=== PATIENT | female | born 1940 | race Caucasian/White ===

== ENCOUNTER 2017-04-27 10:02 | Day surgery (SDC) | payer OTHER, MEDICAID ==
[2017-04-27] MEDS ORDERED: NS 500 ML IV 500 ML IV ONE (10:06)
[2017-04-27] MEDS ORDERED: TETRACAINE 0.5% OPHTH 1 DOSE AFFEYE ONE ×4 (10:15→13:13)
[2017-04-27] MEDS ORDERED: VIGAMOX 0.5% OPHTH 1 DOSE AFFEYE ONE ×6 (10:16→13:23)
[2017-04-27] MEDS ORDERED: PROLENSA OPHTH 1 DOSE AFFEYE ONE (10:27)
[2017-04-27] MEDS ORDERED: ALPHAGAN-P OPHTH 1 DOSE AFFEYE ONE (10:28)
[2017-04-27] MEDS ORDERED: AK-DILATE 2.5% OPHTH 1 DOSE OP ONE ×5 (10:29→10:33)
[2017-04-27] MEDS ORDERED: MYDRIACIL OPHTH 1 DOSE AFFEYE ONE ×5 (10:29→10:33)
[2017-04-27] MEDS ORDERED: CYCLOGYL 1% OPHTH 1 DOSE OP ONE ×5 (10:29→10:33)
[2017-04-27] MEDS ORDERED: DUOVISC IO ONE ×2 (13:02→13:13)
[2017-04-27] MEDS ORDERED: XYLOCAINE-MPF 1% IJ ONE ×2 (13:02→13:13)
[2017-04-27] MEDS ORDERED: ADRENALINE CHL INJ IJ ONE ×2 (13:02→13:13)
[2017-04-27] MEDS ORDERED: BSS OPHTH (PLAIN) 500 ML with VANCOMYCIN HCL 500 MG VIAL 25 MG, ADRENALINE CHL INJ 1 MG IR ONE ×6 (13:03)
[2017-04-27 13:45] VITALS: BP 152/68
[2017-04-27] MEDS ORDERED: VERSED ONE (15:57)
== END 2017-04-27 13:45 | disposition home or self-care (01) ==
LOC: SURG1 10:02
PROVIDERS: ATTEND Ophthalmology
PROC: 08RJ3JZ Replacement of Right Lens with Synthetic Substitute, Percutaneous Approach (ICD-10-PCS; principal; 2017-04-27 18:30)
PROC: 08DJ3ZZ Extraction of Right Lens, Percutaneous Approach (ICD-10-PCS; principal; 2017-04-27 18:30)
DX: H25.11 Age-related nuclear cataract, right eye (principal); H25.011 Cortical age-related cataract, right eye
CPT/HCPCS: 99100; A4217; J0170; J2250; J3370

== ENCOUNTER 2017-06-01 09:10 | Day surgery (SDC) | payer OTHER, MEDICAID ==
[2017-06-01] MEDS ORDERED: NS 500 ML IV 500 ML IV ONE (09:33)
[2017-06-01] MEDS ORDERED: TETRACAINE 0.5% OPHTH 1 DOSE AFFEYE ONE ×2 (09:40→12:45)
[2017-06-01] MEDS ORDERED: VIGAMOX 0.5% OPHTH 1 DOSE AFFEYE ONE ×6 (09:42→13:13)
[2017-06-01] MEDS ORDERED: DIPRIVAN VIAL ONE (09:43)
[2017-06-01] MEDS ORDERED: VERSED ONE (09:43)
[2017-06-01] MEDS ORDERED: PROLENSA OPHTH 1 DOSE AFFEYE ONE (09:52)
[2017-06-01] MEDS ORDERED: ALPHAGAN-P OPHTH 1 DOSE AFFEYE ONE (09:53)
[2017-06-01] MEDS ORDERED: CYCLOGYL 1% OPHTH 1 DOSE OP ONE ×2 (09:54→09:55)
[2017-06-01] MEDS ORDERED: MYDRIACIL OPHTH 1 DOSE AFFEYE ONE ×3 (09:54→09:56)
[2017-06-01] MEDS ORDERED: AK-DILATE 2.5% OPHTH 1 DOSE OP ONE ×3 (09:54→09:56)
[2017-06-01] MEDS ORDERED: BETADINE OPHTH SOLN 5% EACHEYE ONE (12:45)
[2017-06-01] MEDS ORDERED: DUOVISC IO ONE ×2 (12:50→13:03)
[2017-06-01] MEDS ORDERED: ADRENALINE CHL INJ IJ ONE ×2 (12:50→13:03)
[2017-06-01] MEDS ORDERED: XYLOCAINE 1 % (PLAIN) IJ ONE ×2 (12:50→13:03)
[2017-06-01] MEDS ORDERED: BSS OPHTH (PLAIN) 500 ML with VANCOMYCIN HCL 500 MG VIAL 25 MG, ADRENALINE CHL INJ 1 MG IR ONE ×6 (12:57)
[2017-06-01] MEDS ORDERED: TobraDEX OPHTH SUSP 1 DOSE AFFEYE ONE (13:13)
[2017-06-01 13:23] VITALS: BP 145/67
== END 2017-06-01 13:32 | disposition home or self-care (01) ==
LOC: SURG1 09:10
PROVIDERS: ATTEND Ophthalmology
PROC: 08RK3JZ Replacement of Left Lens with Synthetic Substitute, Percutaneous Approach (ICD-10-PCS; principal; 2017-06-01 16:30)
PROC: 08DK3ZZ Extraction of Left Lens, Percutaneous Approach (ICD-10-PCS; principal; 2017-06-01 16:30)
DX: H25.12 Age-related nuclear cataract, left eye (principal); H25.012 Cortical age-related cataract, left eye
CPT/HCPCS: 99100; A4217; J0170; J2001; J2250; J3370; J3490

== ENCOUNTER → 2017-07-23 | Outpatient (CLI) | payer OTHER, MEDICAID ==
[2017-07-23 11:53] LABS: BASOPHILS # (AUTO) 0.1 X10^3/uL (0.0-0.1); BASOPHILS % (AUTO) 1.2 % (0.2-1.0); EOSINOPHILS # (AUTO) 0.1 x10^3/uL (0.0-0.2); EOSINOPHILS % (AUTO) 0.6 % (0.9-2.9); HEMOGLOBIN 14.7 g/dL (12.0-16.0); LYMPHOCYTES # (AUTO) 2.6 X10^3/uL (1.3-2.9); LYMPHOCYTES % (AUTO) 29.6 % (21.0-51.0); MEAN CORPUSCULAR HGB CONC 34.1 g/dL (33.0-35.0); MEAN CORPUSCULAR VOLUME 90.9 fL (80.0-100.0); MEAN PLATELET VOLUME 8.2 fL (7.4-11.0); MONOCYTES # (AUTO) 0.6 x10^3/uL (0.3-0.8); NEUTROPHILS # (AUTO) 5.4 x10^3/uL (2.2-4.8); NEUTROPHILS % (AUTO) 61.6 % (42.0-75.0); PLATELET COUNT 346 X10^3/uL (150.0-450.0); RED BLOOD COUNT 4.73 X10^6/uL (3.5-5.4); RED CELL DISTRIBUTION WIDTH 13.1 % (11.6-16.5); WHITE BLOOD COUNT 8.8 X10^3/uL (3.6-10.0)
[2017-07-23 12:22] LABS: ALANINE AMINOTRANSFERASE 21 Units/L (12-78); ALBUMIN 3.9 g/dL (3.4-5.0); ALKALINE PHOSPHATASE 47 Units/L (46-116); ASPARTATE AMINO TRANSFERASE 16 Units/L (15-37); BILIRUBIN,DIRECT 0.14 mg/dL (0-0.2); BLOOD UREA NITROGEN 22 mg/dL (7-18); CALCIUM 9.2 mg/dL (8.5-10.1); CARBON DIOXIDE 28.1 mmol/L (21-32); CHLORIDE 107 mmol/L (98-107); CHOLESTEROL 197 mg/dL (0-200); CREATININE 1.32 mg/dL (0.55-1.02); HDL CHOLESTEROL 49 mg/dL (40-60); SODIUM 144 mmol/L (136-145); TOTAL PROTEIN 7.4 g/dL (6.4-8.2); TRIGLYCERIDES 159 mg/dL (0-150); eGFR BLACK RACES 50 (>60); eGFR NON BLACK RACES 42 (>60)
== END ==
LOC: RAD 11:35
PROVIDERS: ATTEND Internal Medicine Cardiovascular Disease
DX: I25.10 Atherosclerotic heart disease of native coronary artery without angina pectoris (principal); I10 Essential (primary) hypertension; E78.4 Other hyperlipidemia
CPT/HCPCS: 36415; 80048; 80061; 80076; 85025

== ENCOUNTER → 2017-08-25 | Outpatient (CLI) | payer OTHER, MEDICAID ==
--- NOTE | 2017-08-25 15:50 | CT ---
CT of the abdomen and pelvis without contrast. Indication: Right upper quadrant pain with hematuria. Patient has a history of appendectomy and rob cystectomy. Findings: Images of the lower chest are unremarkable except for atelectasis. The bone windows demonst rate multilevel discogenic degenerative disease without aggressive lesion. There is atherosclerotic d isease of the abdominal aorta without aneurysmal dilatation. The subcutaneous tissues are unremarkabl e except for fat containing bilateral inguinal hernias. Abdomen: There is been a cholecystectomy. Given the limitations of a noncontrast exam the liver, sple en, adrenal glands and pancreas are unremarkable. There is a small hiatal hernia. The right kidney an d ureter show no stone or hydronephrosis. There is a 4 mm nonobstructing stone within the mid left ki dney. Left ureter is unremarkable Pelvis: The urinary bladder is unremarkable. There are scattered colonic diverticulum without adjacen t inflammation. There is no evidence of obstruction or ileus. No free pelvic fluid or adenopathy is s een. Conclusion: Nonobstructing left renal stone with a small hiatal hernia. Reported By:
== END | disposition home or self-care (01) | DRG 392 ==
LOC: RAD 14:46
PROVIDERS: ATTEND Internal Medicine
DX: R10.11 Right upper quadrant pain (principal); N20.0 Calculus of kidney; K44.9 Diaphragmatic hernia without obstruction or gangrene
CPT/HCPCS: 74176

== ENCOUNTER → 2017-11-24 | Outpatient (CLI) | payer OTHER ==
[2017-11-24 11:50] LABS: BASOPHILS # (AUTO) 0.1 X10^3/uL (0.0-0.1); BASOPHILS % (AUTO) 1.2 % (0.2-1.0); EOSINOPHILS # (AUTO) 0.1 x10^3/uL (0.0-0.2); EOSINOPHILS % (AUTO) 1.6 % (0.9-2.9); HEMATOCRIT 40.6 % (36.0-47.0); LYMPHOCYTES # (AUTO) 2.1 X10^3/uL (1.3-2.9); LYMPHOCYTES % (AUTO) 40.7 % (21.0-51.0); MEAN CORPUSCULAR HEMOGLOBIN 30.6 pg (27.0-34.0); MEAN CORPUSCULAR HGB CONC 34.5 g/dL (33.0-35.0); MEAN CORPUSCULAR VOLUME 88.6 fL (80.0-100.0); MEAN PLATELET VOLUME 8.7 fL (7.4-11.0); MONOCYTES # (AUTO) 0.4 x10^3/uL (0.3-0.8); NEUTROPHILS # (AUTO) 2.4 x10^3/uL (2.2-4.8); NEUTROPHILS % (AUTO) 48.5 % (42.0-75.0); PLATELET COUNT 278 X10^3/uL (150.0-450.0); RED BLOOD COUNT 4.58 X10^6/uL (3.5-5.4); RED CELL DISTRIBUTION WIDTH 13.1 % (11.6-16.5); RETICULOCYTE % 1.75 % (0.8-2.2)
[2017-11-24 12:10] LABS: ALANINE AMINOTRANSFERASE 17 Units/L (12-78); ALBUMIN 4.1 g/dL (3.4-5.0); ALKALINE PHOSPHATASE 46 Units/L (46-116); ASPARTATE AMINO TRANSFERASE 7 Units/L (15-37); BLOOD UREA NITROGEN 25 mg/dL (7-18); CALCIUM 8.3 mg/dL (8.5-10.1); CARBON DIOXIDE 28.7 mmol/L (21-32); CHLORIDE 107 mmol/L (98-107); CHOL/HDL RATIO 4.6 (0.0-5.0); CHOLESTEROL 180 mg/dL (0-200); CREATININE 1.48 mg/dL (0.55-1.02); FREE T4 (FREE THYROXINE) 1.17 ng/dL (0.76-1.46); HDL CHOLESTEROL 39 mg/dL (40-60); SODIUM 142 mmol/L (136-145); TOTAL PROTEIN 7.4 g/dL (6.4-8.2); TRIGLYCERIDES 254 mg/dL (0-150); TSH (3RD GENERATION) 2.678 uIU/mL (0.358-3.74); eGFR BLACK RACES 44 (>60); eGFR NON BLACK RACES 36 (>60)
[2017-11-24 12:59] LABS: TRANSFERRIN 276 mg/dL (202-364)
[2017-11-24 14:39] LABS: B-TYPE NATRIURETIC PEPTIDE 147 pg/mL (0-79)
[2017-11-24 15:08] LABS: STOOL FOR WBC NEGATIVE (NEGATIVE)
[2017-11-24 15:14] LABS: GIARDIA LAMBLIA ANTIGEN NEGATIVE (NEGATIVE)
[2017-11-24 15:15] LABS: CRYPTOSPORIDIUM PARVUM ANTIGEN NEGATIVE (NEGATIVE)
== END ==
LOC: LAB 11:12
PROVIDERS: ATTEND Nurse Practitioner Family
DX: I50.9 Heart failure, unspecified (principal); E78.4 Other hyperlipidemia; Z79.899 Other long term (current) drug therapy; R19.7 Diarrhea, unspecified; R53.83 Other fatigue; Z79.52 Long term (current) use of systemic steroids
CPT/HCPCS: 36415; 80053; 80061; 82274; 82607; 82746; 83630; 83880; 84439; 84443; 84466; 85025; 85045; 87045; 87328; 87329; 87336; 87338; 87427; 87449; 87493

== ENCOUNTER → 2017-11-26 | Outpatient (CLI) | payer MEDICAID, OTHER | LOC: LAB 08:20 | PROVIDERS: ATTEND Nurse Practitioner Family | DX: I50.9 Heart failure, unspecified (principal); E78.4 Other hyperlipidemia; Z79.899 Other long term (current) drug therapy; R19.7 Diarrhea, unspecified; R53.83 Other fatigue; Z79.52 Long term (current) use of systemic steroids | CPT/HCPCS: 36415; 82533 ==

== ENCOUNTER → 2017-12-01 | Outpatient (CLI) | payer OTHER ==
--- NOTE | 2017-12-01 14:00 | VAS ---
Examination: Venous duplex Doppler Ultrasound of the lower extremities bilaterally. Clinical History: Bilateral leg edema for 3 weeks, cellulitis. Technique: Duplex Doppler ultrasound utilizing hernandez scale imaging and spectral analysis with color/du plex imaging was used to evaluate the deep venous systems of both legs from the calves to the groins. Comparison: None available. Findings: There is normal flow, compressibility and augmentation of the common femoral-, femoral-, popliteal-, and posterior tibial veins bilaterally. The peroneal and anterior tibial veins were not demonstrated. There is no sonographic evidence of a deep venous thrombosis in either leg. Impression: 1. There is no sonographic evidence of a deep venous thrombosis in either leg. Reported By:
== END ==
LOC: RAD 13:20
PROVIDERS: ATTEND Internal Medicine
DX: L03.115 Cellulitis of right lower limb (principal); L03.116 Cellulitis of left lower limb
CPT/HCPCS: 93970

== ENCOUNTER 2022-07-21 15:51 | Observation (INO) ==
[2022-07-21 17:09] LABS: BASOPHILS # (AUTO) 0.1 X10^3/uL (0.0-0.1); BASOPHILS % (AUTO) 0.6 % (0.2-1.0); BILIRUBIN,URINE NEGATIVE (NEGATIVE); BLOOD/HEMOGLOBIN,URINE 2+ (NEGATIVE); EOSINOPHILS # (AUTO) 0.1 x10^3/uL (0.0-0.2); EOSINOPHILS % (AUTO) 0.9 % (0.9-2.9); GLUCOSE, URINE NEGATIVE (NEGATIVE); HEMATOCRIT 39.2 % (36.0-47.0); HEMOGLOBIN 13.1 g/dL (12.0-16.0); KETONES,URINE NEGATIVE (NEGATIVE); LEUKOCYTE ESTERASE ,URINE 2+ (NEGATIVE); LYMPHOCYTES # (AUTO) 3.1 X10^3/uL (1.3-2.9); LYMPHOCYTES % (AUTO) 24.8 % (21.0-51.0); MEAN CORPUSCULAR HEMOGLOBIN 30.4 pg (27.0-34.0); MEAN CORPUSCULAR HGB CONC 33.5 g/dL (33.0-35.0); MONOCYTES # (AUTO) 1.2 x10^3/uL (0.3-0.8); MONOCYTES % (AUTO) 9.3 % (0.0-13.0); NEUTROPHILS # (AUTO) 8.1 x10^3/uL (2.2-4.8); NEUTROPHILS % (AUTO) 64.4 % (42.0-75.0); NITRITES,URINE NEGATIVE (NEGATIVE); PROTEIN,URINE 1+ (NEGATIVE); RED BLOOD COUNT 4.31 X10^6/uL (3.5-5.4); RED CELL DISTRIBUTION WIDTH 12.9 % (11.6-16.5); UROBILINOGEN,URINE NORMAL (NORMAL); WHITE BLOOD COUNT 12.6 X10^3/uL (3.6-10.0)
[2022-07-21] MEDS: NS 1,000 ML IV 1,000 ML IV SCH (17:16)
[2022-07-21] MEDS: MORPHINE SULFATE INJ 2 MG INJ IVP PRN ×3 (17:16→23:52)
[2022-07-21 17:19] LABS: APPEARANCE,URINE CLEAR (CLEAR); COLOR,URINE YELLOW (YELLOW)
[2022-07-21 17:22] LABS: ALANINE AMINOTRANSFERASE 23 Units/L (12-78); ALBUMIN 3.7 g/dL (3.4-5.0); ALKALINE PHOSPHATASE 71 Units/L (46-116); ASPARTATE AMINO TRANSFERASE 21 Units/L (15-37); BLOOD UREA NITROGEN 25 mg/dL (7-18); CALCIUM 8.9 mg/dL (8.5-10.1); CARBON DIOXIDE 25.3 mmol/L (21-32); CHLORIDE 102 mmol/L (98-107); CREATININE 1.73 mg/dL (0.55-1.02); SODIUM 141 mmol/L (136-145); TOTAL PROTEIN 7.3 g/dL (6.4-8.2); eGFR NON BLACK RACES 30 (>60)
[2022-07-21 17:32] LABS: BACTERIA,URINE TRACE /HPF (NEGATIVE); RENAL EPITHELIAL CELLS,URINE FEW /HPF (NEGATIVE); SQUAMOUS EPITHELIAL CELL,UR FEW /HPF (NEGATIVE)
[2022-07-21] MEDS ORDERED: MAGNESIUM SULFATE 1 GRAM/100 mL PREMIX 1 G/100 ML BAG IV PRN (17:40)
[2022-07-21] MEDS ORDERED: POTASSIUM CHLORIDE LIQ 20 MEQ UDC PO PRN (17:40)
[2022-07-21] MEDS ORDERED: POTASSIUM CHL 40 MEQ/NS 0.45% 500 ML IV PRN (17:40)
[2022-07-21] MEDS ORDERED: KLOR-CON PO PRN (17:40)
[2022-07-21] MEDS ORDERED: K-RIDER 10 MEQ/NS 100 ML 10 MEQ/100 ML BAG IV PRN (17:40)
[2022-07-21] MEDS ORDERED: POTASSIUM CHL 60 MEQ/NS 0.45% 500 ML IV PRN (17:40)
[2022-07-21] MEDS ORDERED: MICRO K EXTEN CAP 10 MEQ PO PRN (17:40)
[2022-07-21] MEDS: K-DUR TAB 20 MEQ PO PRN ×2 (18:01→20:57)
[2022-07-21] MEDS: ROCEPHIN VIAL 1 GRAM 1 G in NS 100 ML IV 100 ML IV SCH (18:01)
--- NOTE | 2022-07-21 18:27 | DR.H&P ---
H&P History & Physical for Day of: H&P Date: 07/21/22 Chief Complaint Chief Complaint: Intractable low back pain Allergies Allergies Allergy/AdvReac Type Severity Reaction Status Date / Time clarithromycin Allergy Verified 07/21/22 16:59 diphenhydramine Allergy Verified 07/21/22 16:59 Iodinated Contrast Media Allergy Verified 07/21/22 16:59 [Iodinated Contrast- Oral and IV Dye] Penicillins Allergy Verified 07/21/22 16:59 History of Present Illness History of Present Illness: This is a pleasant 81-year-old white female who is a patient of [facility]. She presents to the office today with complaints of severe back pain that has been ongoing since . She called and had a Medrol Dosepak called into her as she thought that might help her get better but has not. She has been taking hydrocodone for pain relief and it has not done any thing to relieve her pain whatsoever. She is unable to sleep at night because of the pain and is desperate for pain relief at this time. Because of her severe pain I will go ahead and direct admit her to the hospital and give her IV morphine and plan to do an L-spine and then followed up by a CT lumbar spine. Past Medical History Past Medical History: Arthritis, CHF, Coronary Artery Disease, Depression and Hypertension Past Surgical History Surgical History: Angioplasty/Stents, Appendectomy, Cholecystectomy, Hysterectomy, Ortho Surgery and Other Family History Family Medical History: [place], Sudden Cardiac and Hypertension Social History Does patient currently use any type of tobacco product: No Have you used tobacco products in the last 12 months: No Type of Tobacco Use: None Does any household member use tobacco: No Alcohol Use: None Drug Use: None Medications Home Medications: clarithromycin Allergy (Verified 07/21/22 16:59) diphenhydramine Allergy (Verified 07/21/22 16:59) Iodinated Contrast Media [Iodinated Contrast- Oral and IV Dye] Allergy (Verified 07/21/22 16:59) Penicillins Allergy (Verified 07/21/22 16:59) CONTINUE taking the following medications amitriptyline 10 mg tablet 10 mg PO HS 07/21/22 [History] amlodipine 5 mg tablet 1 tab PO QDAY 07/21/22 [History] clonazepam 0.5 mg tablet 1 tab PO BID PRN Anxiety 07/21/22 [History] clopidogrel 75 mg tablet 1 tab PO QDAY 07/21/22 [History] dexlansoprazole 60 mg capsule,biphase delayed release (Dexilant) 1 cap PO QDAY 07/21/22 [History] fenofibrate nanocrystallized 48 mg tablet 1 tab PO QDAY 07/21/22 [History] furosemide 20 mg tablet 1 tab PO QDAY 07/21/22 [History] hydrocodone 7.5 mg-acetaminophen 325 mg tablet 1 tab PO BID PRN Pain 07/21/22 [History] isosorbide mononitrate 30 mg tablet,extended release 24 hr 1 tab PO QDAY 07/21/22 [History] losartan 25 mg tablet 1 tab PO QDAY 07/21/22 [History] meclizine 25 mg tablet 1 tab PO TID PRN Dizziness 07/21/22 [History] potassium chloride 10 mEq capsule,extended release 1 cap PO QDAY 07/21/22 [History] simvastatin 20 mg tablet 1 tab PO QPM 07/21/22 [History] Labs Result Diagrams: 07/21/22 16:50 07/21/22 16:50 Labs: Laboratory WBC 12.6 X10^3/uL (3.6-10.0) H 07/21/22 16:50 RBC 4.31 X10^6/uL (3.5-5.4) 07/21/22 16:50 Hgb 13.1 g/dL (12.0-16.0) 07/21/22 16:50 Hct 39.2 % (36.0-47.0) 07/21/22 16:50 MCV 91.0 fL (80.0-100.0) 07/21/22 16:50 MCH 30.4 pg (27.0-34.0) 07/21/22 16:50 MCHC 33.5 g/dL (33.0-35.0) 07/21/22 16:50 RDW 12.9 % (11.6-16.5) 07/21/22 16:50 Plt Count 412 X10^3/uL (150.0-450.0) 07/21/22 16:50 MPV 8.0 fL (7.4-11.0) 07/21/22 16:50 Neut % (Auto) 64.4 % (42.0-75.0) 07/21/22 16:50 Lymph % (Auto) 24.8 % (21.0-51.0) 07/21/22 16:50 [place] % (Auto) 9.3 % (0.0-13.0) 07/21/22 16:50 Eos % (Auto) 0.9 % (0.9-2.9) 07/21/22 16:50 Baso % (Auto) 0.6 % (0.2-1.0) 07/21/22 16:50 Neut # (Auto) 8.1 x10^3/uL (2.2-4.8) H 07/21/22 16:50 Lymph # (Auto) 3.1 X10^3/uL (1.3-2.9) H 07/21/22 16:50 [place] # (Auto) 1.2 x10^3/uL (0.3-0.8) H 07/21/22 16:50 Eos # (Auto) 0.1 x10^3/uL (0.0-0.2) 07/21/22 16:50 Baso # (Auto) 0.1 X10^3/uL (0.0-0.1) 07/21/22 16:50 Absolute Nucleated RBC 0.0 /100WBC 07/21/22 16:50 Sodium 141 mmol/L (136-145) 07/21/22 16:50 Corrected Sodium TNP 07/21/22 16:50 Potassium 3.3 mmol/L (3.5-5.1) L 07/21/22 16:50 Chloride 102 mmol/L (98-107) 07/21/22 16:50 Carbon Dioxide 25.3 mmol/L (21-32) 07/21/22 16:50 BUN 25 mg/dL (7-18) H 07/21/22 16:50 Creatinine 1.73 mg/dL (0.55-1.02) H 07/21/22 16:50 Est GFR (MDRD) Af Amer 36 (>60) L 07/21/22 16:50 Est GFR (MDRD) Non-Af 30 (>60) L 07/21/22 16:50 Glucose 104 mg/dL (65-99) H 07/21/22 16:50 Calcium 8.9 mg/dL (8.5-10.1) 07/21/22 16:50 Corrected Calcium TNP 07/21/22 16:50 Magnesium 2.0 mg/dL (2.0-2.9) 07/21/22 16:50 Total Bilirubin 0.30 mg/dL (0.2-1.0) 07/21/22 16:50 AST 21 Units/L (15-37) 07/21/22 16:50 ALT 23 Units/L (12-78) 07/21/22 16:50 Alkaline Phosphatase 71 Units/L (46-116) 07/21/22 16:50 Total Protein 7.3 g/dL (6.4-8.2) 07/21/22 16:50 Albumin 3.7 g/dL (3.4-5.0) 07/21/22 16:50 Globulin 3.6 g/dL (2.5-4.5) 07/21/22 16:50 Albumin/Globulin Ratio 1.0 Ratio (1.1-2.1) L 07/21/22 16:50 Specimen Type Clean catch urine 07/21/22 16:50 Urine Color Yellow (YELLOW) 07/21/22 16:50 Urine Appearance Clear (CLEAR) 07/21/22 16:50 Urine pH 6.0 (5.0 - 8.0) 07/21/22 16:50 Ur Specific [place] 1.025 (1.000-1.030) 07/21/22 16:50 Urine Protein 1+ (NEGATIVE) 07/21/22 16:50 Urine Glucose (UA) Negative (NEGATIVE) 07/21/22 16:50 Urine Ketones Negative (NEGATIVE) 07/21/22 16:50 Urine Blood 2+ (NEGATIVE) 07/21/22 16:50 Urine Nitrite Negative (NEGATIVE) 07/21/22 16:50 Urine Bilirubin Negative (NEGATIVE) 07/21/22 16:50 Urine Urobilinogen Normal (NORMAL) 07/21/22 16:50 Ur Leukocyte Esterase 2+ (NEGATIVE) 07/21/22 16:50 Urine RBC 3-5 /HPF (0-3) A 07/21/22 16:50 Urine WBC 5-10 /HPF (0-5) A 07/21/22 16:50 Ur Squamous Epith Cells Few /HPF (NEGATIVE) 07/21/22 16:50 Ur Renal Epithelial Cell Few /HPF (NEGATIVE) 07/21/22 16:50 Urine Bacteria Trace /HPF (NEGATIVE) 07/21/22 16:50 Ur Culture Indicated? No/not indicated 07/21/22 16:50 Review of Systems Constitutional: No Symptoms Reported Eyes: No Symptoms Reported ENT: No Symptoms Reported Respiratory: No Symptoms Reported Cardiovascular: No Symptoms Reported Gastrointestinal: No Symptoms Reported Genitourinary: Retention Musculoskeletal: Back Pain Skin: No Symptoms Reported Neurological: Weakness and Incoordination Physical Exam Vital Signs: Temperature 98.1 F Pulse Rate 77 Respiratory Rate 17 Blood Pressure [Right Arm] 122/67 Blood Pressure 149/77 O2 Sat by Pulse Oximetry 99 Oriented: Normal Eyes: Normal Respiratory: Clear Throughout Cardiovascular: Normal Auscultation: Bowel Sounds: Normal Palpation: Normal Tenderness: Normal Skin: Normal Musculoskeletal: Back:Lumbar Psychiatric: Normal Mood Description: Calm Affect: Normal Speech Pattern: Clear and Appropriate Assessment/Plan (1) Intractable low back pain: Status: Acute Plan: IV morphine for pain control. Check L-spine follow the with a CT of lumbar spine later. (2) Hypokalemia: Status: Acute Plan: Potassium sliding-scale replacement protocol (3) Urinary tract infection: Status: Acute Plan: IV Rocephin (4) Chronic kidney disease (CKD): Qualifiers: Chronic kidney disease stage: stage 3 (moderate) Qualified Code(s): N18.3 - Chronic kidney disease, stage 3 (moderate) Status: Acute (5) CAD (coronary artery disease): Status: Acute (6) CHF (congestive heart failure): Status: Acute Plan: Continue Lasix (7) Hypertension: Qualifiers: Hypertension type: essential hypertension Qualified Code(s): I10 - Essential (primary) hypertension Status: Acute Plan: Resume home blood pressure medications. Review H&P Reviewed: Yes Patient was examined?: Yes
[2022-07-21] MEDS: NORCO 7.5/325 MG TAB PO PRN (20:36)
[2022-07-21] MEDS: ELAVIL PO SCH (20:37)
[2022-07-21] MEDS: KLONOPIN TAB 0.5 MG PO PRN (20:37)
[2022-07-21] MEDS: NORVASC TAB 5 MG PO SCH (20:37)
[2022-07-21] MEDS: ZOCOR TAB 20 MG PO SCH (20:38)
[2022-07-22] MEDS: MORPHINE SULFATE INJ 2 MG INJ IVP PRN (04:43)
[2022-07-22 05:22] LABS: BASOPHILS # (AUTO) 0.1 X10^3/uL (0.0-0.1); EOSINOPHILS # (AUTO) 0.2 x10^3/uL (0.0-0.2); EOSINOPHILS % (AUTO) 1.9 % (0.9-2.9); HEMATOCRIT 37.3 % (36.0-47.0); HEMOGLOBIN 12.7 g/dL (12.0-16.0); LYMPHOCYTES # (AUTO) 2.2 X10^3/uL (1.3-2.9); LYMPHOCYTES % (AUTO) 27.2 % (21.0-51.0); MEAN CORPUSCULAR HEMOGLOBIN 30.4 pg (27.0-34.0); MEAN CORPUSCULAR HGB CONC 34.1 g/dL (33.0-35.0); MEAN PLATELET VOLUME 8.2 fL (7.4-11.0); MONOCYTES # (AUTO) 0.8 x10^3/uL (0.3-0.8); MONOCYTES % (AUTO) 9.7 % (0.0-13.0); NEUTROPHILS # (AUTO) 4.8 x10^3/uL (2.2-4.8); NEUTROPHILS % (AUTO) 60.2 % (42.0-75.0); RED BLOOD COUNT 4.19 X10^6/uL (3.5-5.4); RED CELL DISTRIBUTION WIDTH 12.9 % (11.6-16.5)
[2022-07-22 05:38] LABS: ALBUMIN 3.1 g/dL (3.4-5.0); CALCIUM 8.5 mg/dL (8.5-10.1); CARBON DIOXIDE 24.4 mmol/L (21-32); COR CA(FOR HYPOALB) 9.2 mg/dL (8.5-10.1); CREATININE 1.5 mg/dL (0.55-1.02); TOTAL PROTEIN 6.3 g/dL (6.4-8.2)
[2022-07-22] MEDS: NS 1,000 ML IV 1,000 ML IV SCH ×3 (05:54→21:10)
[2022-07-22] MEDS: NORCO 7.5/325 MG TAB PO PRN (07:22)
--- NOTE | 2022-07-22 08:05 | CT ---
HISTORYINTRACTABLE BACK PAINSTUDYLUMBAR SPINE W/O CONCOMPARISONCT abdomen and pelvis 04/26/[address]EM[address] CT axial images of the lumbar spine were obtained without IV contrast. Coronal and sagittal images were reconstructed. Dose reduction techniques included Automated Exposure Control (AEC) and adjustment of mA and kV.FINDINGSThere is no significant scoliosis. The usual lordosis is maintained. The heights of the vertebral bodies are normal. No spondylolisthesis. No spondylolysis. There is no fracture.Degenerative changes are present in the spine. Degenerative disc disease is most severe in the lower thoracic spine. Facet osteoarthritis is most severe in the lower lumbar spine. Multifactorial degenerative stenosis is present, probably most significant at the L4-5 level.L4-5: A diffuse symmetric broad based disc bulge is present. This is small in size. Bilateral facet arthropathy is present. Bilateral ligamentum flavum thickening is present. This causes a moderate to severe trefoil appearance to the canal contributing the lateral recess stenosis.Stone in the upper left kidney measures about 5 mm. No hydronephrosis. Surgical clips are present in the gallbladder fossa from a cholecystectomy. There are diverticula in the colon. But there is no wall thickening or pericolonic edema to suggest acute diverticulitis.IMPRESSION1. Multilevel degenerative changes, most significant at L4-52. Nonobstructing left renal calculus3. Colonic diverticulaElectronically signed by: Mamadou Cummings (Jul 22, 2022 08:04:23)
--- NOTE | 2022-07-22 08:25 | RAD ---
HISTORYIntractable back painSTUDYLumbar spine three viewsCOMPARISONNoneFINDINGSThe bones are osteopenic. The alignment is normal. The vertebral bodies are of average height. Disc heights are preserved with the exception of disc space narrowing at T12-L1, L1-2. Spondylitic changes present T12-L1. Pedicles are intact. SI joints are normal. Diffuse bilateral facet arthropathy is present.IMPRESSIONDisc space narrowing T12-L1, L1-2Spondylitic changes [id number] bilateral facet arthropathyOsteopeniaElectronically signed by: SKIP CASILLAS (Jul 22, 2022 08:23:54)
[2022-07-22] MEDS: ROCEPHIN VIAL 1 GRAM 1 G in NS 100 ML IV 100 ML IV SCH (09:10)
[2022-07-22] MEDS: LASIX PO SCH (09:11)
[2022-07-22] MEDS: KLONOPIN TAB 0.5 MG PO PRN ×2 (09:12→21:02)
[2022-07-22] MEDS: MICRO K EXTEN CAP 10 MEQ PO SCH (09:12)
[2022-07-22] MEDS: COZAAR PO SCH (09:12)
[2022-07-22] MEDS: PLAVIX PO SCH (09:13)
[2022-07-22] MEDS: PROTONIX TAB 40 MG PO SCH (09:13)
[2022-07-22] MEDS: IMDUR PO SCH (09:18)
[2022-07-22] MEDS: NORCO 10/325 TAB PO PRN ×3 (12:05→22:34)
[2022-07-22] MEDS: LOVENOX INJ 40 MG SYR SC SCH (12:08)
[2022-07-22] MEDS ORDERED: MORPHINE SULFATE INJ 2 MG INJ ONE (15:33)
[2022-07-22] MEDS ORDERED: MORPHINE SULFATE INJ 2 MG INJ IVP ONE (15:37)
--- NOTE | 2022-07-22 15:41 | PCM.PROG ---
Progress Note Progress Note for Day of Date of Exam: 07/22/22 Subjective Subjective: Patient reports that morphine is controlling her back pain. However later in the day we will try to increase her hydrocodone to see if that helps her back pain it only lasted for 2 hours. We increased her from the 7.5 of [place] to 10 mg of [place]. Because it has not controlled her pain we will proceed with MRI of her lumbar spine to see if we can find any other reason that she is having increased lower back pain. Past Medical Family Social History Allergies: Allergies clarithromycin Allergy (Verified 07/21/22 16:59) diphenhydramine Allergy (Verified 07/21/22 16:59) Iodinated Contrast Media [Iodinated Contrast- Oral and IV Dye] Allergy (Verified 07/21/22 16:59) Penicillins Allergy (Verified 07/21/22 16:59) alprazolam [From Xanax] Adverse Reaction (Verified 07/21/22 20:56) Review of Systems ROS: No change since H&P Vital Signs and I&O's Vital Signs: Temperature 97.6 F Pulse Rate 61 Respiratory Rate 20 Blood Pressure [Right Arm] 122/67 Blood Pressure 162/70 O2 Sat by Pulse Oximetry 93 Intake and Output: Intake & Output 07/20/22 07/21/22 07/22/22 07/23/22 11:59 11:59 11:59 11:59 Intake Total 1344 / 1344 Output Total 1300 / 1300 Balance 44 / 44 Physical Exam Oriented: Normal Eyes: Normal Respiratory: Normal Cardiovascular: Normal Auscultation: Bowel Sounds: Normal Tenderness: Normal Skin: Normal Musculoskeletal: Back:Lumbar Psychiatric: Normal Mood Description: Calm Affect: Normal Speech Pattern: Clear and Appropriate Laboratory and Diagnostics Result Diagrams: 07/22/22 04:35 07/22/22 04:35 Labs: Laboratory WBC 8.0 X10^3/uL (3.6-10.0) 07/22/22 04:35 RBC 4.19 X10^6/uL (3.5-5.4) 07/22/22 04:35 Hgb 12.7 g/dL (12.0-16.0) 07/22/22 04:35 Hct 37.3 % (36.0-47.0) 07/22/22 04:35 MCV 89.0 fL (80.0-100.0) 07/22/22 04:35 MCH 30.4 pg (27.0-34.0) 07/22/22 04:35 MCHC 34.1 g/dL (33.0-35.0) 07/22/22 04:35 RDW 12.9 % (11.6-16.5) 07/22/22 04:35 Plt Count 330 X10^3/uL (150.0-450.0) 07/22/22 04:35 MPV 8.2 fL (7.4-11.0) 07/22/22 04:35 Neut % (Auto) 60.2 % (42.0-75.0) 07/22/22 04:35 Lymph % (Auto) 27.2 % (21.0-51.0) 07/22/22 04:35 [place] % (Auto) 9.7 % (0.0-13.0) 07/22/22 04:35 Eos % (Auto) 1.9 % (0.9-2.9) 07/22/22 04:35 Baso % (Auto) 1.0 % (0.2-1.0) 07/22/22 04:35 Neut # (Auto) 4.8 x10^3/uL (2.2-4.8) 07/22/22 04:35 Lymph # (Auto) 2.2 X10^3/uL (1.3-2.9) 07/22/22 04:35 [place] # (Auto) 0.8 x10^3/uL (0.3-0.8) 07/22/22 04:35 Eos # (Auto) 0.2 x10^3/uL (0.0-0.2) 07/22/22 04:35 Baso # (Auto) 0.1 X10^3/uL (0.0-0.1) 07/22/22 04:35 Absolute Nucleated RBC 0.0 /100WBC 07/22/22 04:35 Sodium 143 mmol/L (136-145) 07/22/22 04:35 Corrected Sodium 143 mmol/L (136-145) 07/22/22 04:35 Potassium 4.3 mmol/L (3.5-5.1) 07/22/22 04:35 Chloride 109 mmol/L (98-107) H 07/22/22 04:35 Carbon Dioxide 24.4 mmol/L (21-32) 07/22/22 04:35 BUN 18 mg/dL (7-18) 07/22/22 04:35 Creatinine 1.50 mg/dL (0.55-1.02) H 07/22/22 04:35 Est GFR (MDRD) Af Amer 43 (>60) L 07/22/22 04:35 Est GFR (MDRD) Non-Af 35 (>60) L 07/22/22 04:35 Glucose 111 mg/dL (65-99) H 07/22/22 04:35 Calcium 8.5 mg/dL (8.5-10.1) 07/22/22 04:35 Corrected Calcium 9.2 mg/dL (8.5-10.1) 07/22/22 04:35 Magnesium 2.0 mg/dL (2.0-2.9) 07/21/22 16:50 Total Bilirubin 0.30 mg/dL (0.2-1.0) 07/22/22 04:35 AST 26 Units/L (15-37) 07/22/22 04:35 ALT 21 Units/L (12-78) 07/22/22 04:35 Alkaline Phosphatase 59 Units/L (46-116) 07/22/22 04:35 Total Protein 6.3 g/dL (6.4-8.2) L 07/22/22 04:35 Albumin 3.1 g/dL (3.4-5.0) L 07/22/22 04:35 Globulin 3.2 g/dL (2.5-4.5) 07/22/22 04:35 Albumin/Globulin Ratio 1.0 Ratio (1.1-2.1) L 07/22/22 04:35 Specimen Type Clean catch urine 07/21/22 16:50 Urine Color Yellow (YELLOW) 07/21/22 16:50 Urine Appearance Clear (CLEAR) 07/21/22 16:50 Urine pH 6.0 (5.0 - 8.0) 07/21/22 16:50 Ur Specific [place] 1.025 (1.000-1.030) 07/21/22 16:50 Urine Protein 1+ (NEGATIVE) 07/21/22 16:50 Urine Glucose (UA) Negative (NEGATIVE) 07/21/22 16:50 Urine Ketones Negative (NEGATIVE) 07/21/22 16:50 Urine Blood 2+ (NEGATIVE) 07/21/22 16:50 Urine Nitrite Negative (NEGATIVE) 07/21/22 16:50 Urine Bilirubin Negative (NEGATIVE) 07/21/22 16:50 Urine Urobilinogen Normal (NORMAL) 07/21/22 16:50 Ur Leukocyte Esterase 2+ (NEGATIVE) 07/21/22 16:50 Urine RBC 3-5 /HPF (0-3) A 07/21/22 16:50 Urine WBC 5-10 /HPF (0-5) A 07/21/22 16:50 Ur Squamous Epith Cells Few /HPF (NEGATIVE) 07/21/22 16:50 Ur Renal Epithelial Cell Few /HPF (NEGATIVE) 07/21/22 16:50 Urine Bacteria Trace /HPF (NEGATIVE) 07/21/22 16:50 Ur Culture Indicated? No/not indicated 07/21/22 16:50 Radiology Reviewed: Yes Plan (1) Intractable low back pain: Status: Acute Narrative Support Text: Lumbar spine and CT of the lumbar spine showed advanced degenerative changes and spondylitic changes of the vertebra. Plan: IV morphine for pain control. Proceed to check MRI of the L-spine today. Follow-up with results when available. I will give her some IV morphine prior to going to get that MRI so she can lie still long enough to get it done. (2) Hypokalemia: Status: Acute Plan: Potassium sliding-scale replacement protocol (3) Urinary tract infection: Status: Acute Plan: IV Rocephin (4) Chronic kidney disease (CKD): Status: Acute Qualifiers: Chronic kidney disease stage: stage 3 (moderate) Qualified Code(s): N18.3 - Chronic kidney disease, stage 3 (moderate) Narrative Support Text: Stable (5) CAD (coronary artery disease): Status: Acute (6) CHF (congestive heart failure): Status: Acute Plan: Continue Lasix (7) Hypertension: Status: Acute Qualifiers: Hypertension type: essential hypertension Qualified Code(s): I10 - Essential (primary) hypertension Plan: Resume home blood pressure medications.
[2022-07-22] MEDS ORDERED: SOLU-Medrol 125 MG VIAL IVP ONE (15:44)
--- NOTE | 2022-07-22 16:47 | MRI ---
MR lumbar spine with and without contrastIndication: Intractable lower back pain.COMPARISONJan2022 CTTECHNIQUEMultiplanar multisequence imaging through the lumbar spine before and after 18 cc of MultiHance per protocolFINDINGSThere is STIR edema at the inferior endplate of L2, with low T1 signal and irregularity of the endplate, compatible with fracture. Remaining T1 weighted bone marrow signal is normal with mild multilevel spine disc degenerative change and facet arthropathy. Conus terminates around the L1-L2 level. Visualized abdominopelvic soft tissues show no acute abnormality. SI joint DJD noted.T10-T11: No stenosis, seen only on sagittal [id number]: Minimal disc bulge and mild facet arthropathy causes minimal spinal canal effacement without high-grade [id number]-L1: Mild facet arthropathy and minimal disc ridging without high-grade stenosisL1-L2: Disc bulge and mild facet arthropathy causes minimal thecal sac effacement and minimal left greater than right neural foramina encroachmentL2-L3: Disc bulge and mild facet arthropathy causes minimal spinal canal narrowing and no high-grade neural foramina stenosisL3-L4: Disc bulge and moderate facet arthropathy causes mild spinal canal narrowing with mild bilateral neural foramina encroachmentL4-L5: Circumferential disc bulge and moderate facet arthropathy causes moderate spinal canal narrowing with minimal right neural foramina encroachmentL5-S1: Facet arthropathy and disc bulge causes minimal spinal canal narrowing with mild left greater than right neural foramina encroachmentThere is enhancement and edema at the inferior endplate of L2, corresponding to the fracture, without other enhancing lesion identified.IMPRESSION1. Inferior endplate fracture at L2 with about 15 percent height loss due to the concave appearance of the vertebral body, compatible with acute fracture, possibly insufficiency type. Orthopedic surgical follow-up recommended.2. Spine degenerative changes and other findings as above.Electronically signed by: [place] (Jul 22, 2022 16:46:43)
[2022-07-22] MEDS: CELEBREX PO SCH (17:10)
[2022-07-22] MEDS: ZOCOR TAB 20 MG PO SCH (21:00)
[2022-07-22] MEDS: NORVASC TAB 5 MG PO SCH (21:04)
[2022-07-22] MEDS: ELAVIL PO SCH (21:10)
[2022-07-23 05:24] LABS: BASOPHILS # (AUTO) 0.1 X10^3/uL (0.0-0.1); BASOPHILS % (AUTO) 1.2 % (0.2-1.0); HEMATOCRIT 35.8 % (36.0-47.0); HEMOGLOBIN 12.3 g/dL (12.0-16.0); LYMPHOCYTES # (AUTO) 0.8 X10^3/uL (1.3-2.9); LYMPHOCYTES % (AUTO) 11.1 % (21.0-51.0); MEAN CORPUSCULAR HEMOGLOBIN 30.5 pg (27.0-34.0); MEAN CORPUSCULAR HGB CONC 34.4 g/dL (33.0-35.0); MEAN CORPUSCULAR VOLUME 88.6 fL (80.0-100.0); MEAN PLATELET VOLUME 8.2 fL (7.4-11.0); MONOCYTES # (AUTO) 0 x10^3/uL (0.3-0.8); MONOCYTES % (AUTO) 0.6 % (0.0-13.0); NEUTROPHILS # (AUTO) 6.3 x10^3/uL (2.2-4.8); NEUTROPHILS % (AUTO) 87.1 % (42.0-75.0); RED BLOOD COUNT 4.04 X10^6/uL (3.5-5.4); WHITE BLOOD COUNT 7.3 X10^3/uL (3.6-10.0)
[2022-07-23 05:36] LABS: CALCIUM 8.4 mg/dL (8.5-10.1); CARBON DIOXIDE 25.1 mmol/L (21-32); COR CA(FOR HYPOALB) 9.2 mg/dL (8.5-10.1); CREATININE 2.05 mg/dL (0.55-1.02); TOTAL PROTEIN 6.3 g/dL (6.4-8.2)
[2022-07-23] MEDS: ROCEPHIN VIAL 1 GRAM 1 G in NS 100 ML IV 100 ML IV SCH (08:28)
[2022-07-23] MEDS: LOVENOX INJ 40 MG SYR SC SCH ×2 (08:29→08:42)
[2022-07-23] MEDS: PLAVIX PO SCH (08:31)
[2022-07-23] MEDS: CELEBREX PO SCH (08:31)
[2022-07-23] MEDS: IMDUR PO SCH (08:31)
[2022-07-23] MEDS: PROTONIX TAB 40 MG PO SCH (08:31)
[2022-07-23] MEDS: LASIX PO SCH (08:31)
[2022-07-23] MEDS: NORCO 10/325 TAB PO PRN ×2 (08:31→14:57)
[2022-07-23] MEDS: MICRO K EXTEN CAP 10 MEQ PO SCH (08:31)
[2022-07-23] MEDS: COZAAR PO SCH (08:32)
[2022-07-23] MEDS ORDERED: SOLU-Medrol 40 MG VIAL IVP SCH ×2 (09:00)
[2022-07-23] MEDS: NS 1,000 ML IV 1,000 ML IV SCH (10:58)
[2022-07-23 12:12] VITALS: BP 162/74
--- NOTE | 2022-07-23 18:43 | PCM.DCPLAN ---
DISCHARGE SUMMARY Admission Date Date of Admission: 07/21/22 Discharge Date Discharge Date: 07/23/22 Admission Diagnoses (1) Intractable low back pain: Status: Acute (2) Hypokalemia: Status: Acute (3) Urinary tract infection: Status: Acute (4) Chronic kidney disease (CKD): Status: Acute (5) CAD (coronary artery disease): Status: Acute (6) CHF (congestive heart failure): Status: Acute (7) Hypertension: Status: Acute Discharge Diagnoses Discharge Diagnosis: 1. L2 vertebral endplate fracture with 15% loss of height 2. UTI 3. Acute back pain improved 4. History of hypertension stable 5. History of congestive heart failure stable 6. Chronic kidney disease stable 7. History of coronary artery disease stable Discharge Medications Discharge Medications: Home Medication List amitriptyline 10 mg tablet 10 mg PO HS 07/21/22 [History] amlodipine 5 mg tablet 1 tab PO QDAY 07/21/22 [History] clonazepam 0.5 mg tablet 1 tab PO BID PRN Anxiety 07/21/22 [History] clopidogrel 75 mg tablet 1 tab PO QDAY 07/21/22 [History] dexlansoprazole 60 mg capsule,biphase delayed release (Dexilant) 1 cap PO QDAY 07/21/22 [History] fenofibrate nanocrystallized 48 mg tablet 1 tab PO QDAY 07/21/22 [History] furosemide 20 mg tablet 1 tab PO QDAY 07/21/22 [History] isosorbide mononitrate 30 mg tablet,extended release 24 hr 1 tab PO QDAY 07/21/22 [History] losartan 25 mg tablet 1 tab PO QDAY 07/21/22 [History] meclizine 25 mg tablet 1 tab PO TID PRN Dizziness 07/21/22 [History] potassium chloride 10 mEq capsule,extended release 1 cap PO QDAY 07/21/22 [History] simvastatin 20 mg tablet 1 tab PO QPM 07/21/22 [History] celecoxib 100 mg capsule (Celebrex) 100 mg PO DAILY #30 caps 07/23/22 [Rx] hydrocodone 10 mg-acetaminophen 325 mg tablet 1 tab PO Q6H PRN #30 tabs 07/23/22 [Rx] methylprednisolone 4 mg tablets in a dose pack (Medrol (Bhanu)) See Rx Instructions .Route .COMPLEX #1 ea 07/23/22 [Rx] Prescriptions: celecoxib [Celebrex] CYNDEE SHELBY hydrocodone-acetaminophen HERONCYNDEE methylprednisolone [Medrol (Bhanu)] HERON,CYNDEE Hospital Course Vital Signs: Temperature 98.0 F Pulse Rate 90 Respiratory Rate 18 Blood Pressure [Right Arm] 122/67 Blood Pressure 162/74 O2 Sat by Pulse Oximetry 93 Latest Lab Results: Laboratory Last Values WBC 7.3 X10^3/uL (3.6-10.0) 07/23/22 04:35 RBC 4.04 X10^6/uL (3.5-5.4) 07/23/22 04:35 Hgb 12.3 g/dL (12.0-16.0) 07/23/22 04:35 Hct 35.8 % (36.0-47.0) L 07/23/22 04:35 MCV 88.6 fL (80.0-100.0) 07/23/22 04:35 MCH 30.5 pg (27.0-34.0) 07/23/22 04:35 MCHC 34.4 g/dL (33.0-35.0) 07/23/22 04:35 RDW 13.0 % (11.6-16.5) 07/23/22 04:35 Plt Count 331 X10^3/uL (150.0-450.0) 07/23/22 04:35 MPV 8.2 fL (7.4-11.0) 07/23/22 04:35 Neut % (Auto) 87.1 % (42.0-75.0) H 07/23/22 04:35 Lymph % (Auto) 11.1 % (21.0-51.0) L 07/23/22 04:35 [place] % (Auto) 0.6 % (0.0-13.0) 07/23/22 04:35 Eos % (Auto) 0.0 % (0.9-2.9) L 07/23/22 04:35 Baso % (Auto) 1.2 % (0.2-1.0) H 07/23/22 04:35 Neut # (Auto) 6.3 x10^3/uL (2.2-4.8) H 07/23/22 04:35 Lymph # (Auto) 0.8 X10^3/uL (1.3-2.9) L 07/23/22 04:35 Clarke # (Auto) 0 x10^3/uL (0.3-0.8) L 07/23/22 04:35 Eos # (Auto) 0.0 x10^3/uL (0.0-0.2) 07/23/22 04:35 Baso # (Auto) 0.1 X10^3/uL (0.0-0.1) 07/23/22 04:35 Absolute Nucleated RBC 0.0 /100WBC 07/23/22 04:35 Sodium 137 mmol/L (136-145) 07/23/22 04:35 Corrected Sodium 139 mmol/L (136-145) 07/23/22 04:35 Potassium 4.8 mmol/L (3.5-5.1) 07/23/22 04:35 Chloride 103 mmol/L (98-107) 07/23/22 04:35 Carbon Dioxide 25.1 mmol/L (21-32) 07/23/22 04:35 BUN 17 mg/dL (7-18) 07/23/22 04:35 Creatinine 2.05 mg/dL (0.55-1.02) H 07/23/22 04:35 Est GFR (MDRD) Af Amer 30 (>60) L 07/23/22 04:35 Est GFR (MDRD) Non-Af 25 (>60) L 07/23/22 04:35 Glucose 174 mg/dL (65-99) H 07/23/22 04:35 Calcium 8.4 mg/dL (8.5-10.1) L 07/23/22 04:35 Corrected Calcium 9.2 mg/dL (8.5-10.1) 07/23/22 04:35 Magnesium 2.0 mg/dL (2.0-2.9) 07/21/22 16:50 Total Bilirubin 0.20 mg/dL (0.2-1.0) 07/23/22 04:35 AST 31 Units/L (15-37) 07/23/22 04:35 ALT 35 Units/L (12-78) 07/23/22 04:35 Alkaline Phosphatase 63 Units/L (46-116) 07/23/22 04:35 Total Protein 6.3 g/dL (6.4-8.2) L 07/23/22 04:35 Albumin 3.0 g/dL (3.4-5.0) L 07/23/22 04:35 Globulin 3.3 g/dL (2.5-4.5) 07/23/22 04:35 Albumin/Globulin Ratio 0.9 Ratio (1.1-2.1) L 07/23/22 04:35 Specimen Type Clean catch urine 07/21/22 16:50 Urine Color Yellow (YELLOW) 07/21/22 16:50 Urine Appearance Clear (CLEAR) 07/21/22 16:50 Urine pH 6.0 (5.0 - 8.0) 07/21/22 16:50 Ur Specific [place] 1.025 (1.000-1.030) 07/21/22 16:50 Urine Protein 1+ (NEGATIVE) 07/21/22 16:50 Urine Glucose (UA) Negative (NEGATIVE) 07/21/22 16:50 Urine Ketones Negative (NEGATIVE) 07/21/22 16:50 Urine Blood 2+ (NEGATIVE) 07/21/22 16:50 Urine Nitrite Negative (NEGATIVE) 07/21/22 16:50 Urine Bilirubin Negative (NEGATIVE) 07/21/22 16:50 Urine Urobilinogen Normal (NORMAL) 07/21/22 16:50 Ur Leukocyte Esterase 2+ (NEGATIVE) 07/21/22 16:50 Urine RBC 3-5 /HPF (0-3) A 07/21/22 16:50 Urine WBC 5-10 /HPF (0-5) A 07/21/22 16:50 Ur Squamous Epith Cells Few /HPF (NEGATIVE) 07/21/22 16:50 Ur Renal Epithelial Cell Few /HPF (NEGATIVE) 07/21/22 16:50 Urine Bacteria Trace /HPF (NEGATIVE) 07/21/22 16:50 Ur Culture Indicated? No/not indicated 07/21/22 16:50 Hospital Course: This is a pleasant 81-year-old white female who is a patient of mine. She presents to the office today with complaints of severe back pain that has been ongoing since [place]. She called and had a Medrol Dosepak called into her as she thought that might help her get better but has not. She has been taking hydrocodone for pain relief and it has not done anything to relieve her pain whatsoever. She is unable to sleep at night because of the pain and is desperate for pain relief at this time. Because of her severe pain I will go ahead and direct admit her to the hospital and give her IV morphine and plan to do an L-spine and then followed up by a CT lumbar spine. When I have the reports back on the L-spine and the CT lumbar spine that showed degenerative changes. However did not show any acute processes. Her pain remained despite going up to 10 mg on hydrocodone and trying to stop the morphine. I added IV Solu-Medrol for better pain control and p.o. Celebrex 100 mg daily and by the following day her pain was stable. On the previous day I did also order MRI of the lumbar spine that showed that she had a endplate fracture of L2 vertebra with 15% loss of body height. Since she is stable today on her current regimen of treatment I will discharge her on her regular home medicine as before but we will increase her [place] to 10/325 mg 1 every 6 hours as needed pain along with a new prescription for Celebrex 100 mg 1 p.o. daily and also a Medrol Dosepak taken as directed. Patient will be discharged home in stable condition and she will be following up with me within 7 to 14 days for hospital follow-up. If she has any worsening of pain or worsening problems before that she is to come office or I can get her appointment sooner.
== END 2022-07-23 15:35 | disposition home or self-care (01) ==
LOC: ICU
PROVIDERS: ADMIT Family Medicine; ATTEND Family Medicine
DX: E87.6 Hypokalemia; M85.88 Other specified disorders of bone density and structure, other site; I50.9 Heart failure, unspecified; N39.0 Urinary tract infection, site not specified; R26.89 Other abnormalities of gait and mobility; N18.30 Chronic kidney disease, stage 3 unspecified; I13.0 Hypertensive heart and chronic kidney disease with heart failure and stage 1 through stage 4 chronic kidney disease, or unspecified chronic kidney disease; M54.59 Other low back pain; I25.10 Atherosclerotic heart disease of native coronary artery without angina pectoris